=== PATIENT | female | born 1960 | race Two or more races ===

== ENCOUNTER 2019-11-12 19:48 | Emergency (ER) | payer MEDICAID ==
--- NOTE | 2019-11-12 20:16 | ER Document Report ---
ED Medical Screen (RME) - General Chief Complaint: Knee Pain Stated Complaint: KNEE PAIN Time Seen by Provider: 11/12/19 20:14 Mode of Arrival: Ambulatory Information source: Patient Notes: 59-year-old female presented to ED for complaint in both hips and her right shoulder. She states she moved from [place] 2 weeks ago and last saw her doctor more than a month ago. She states her doctor in [place] had her on Ultram and she has run out of Ultram now about a week ago. She called her doctor in [place] and she said she would need to get the medicines here now. She states she went to an urgent care and they told her that they could not see her because of her insurance. She is alert oriented respirations regular nonlabored speaking in full sentences. She states she has had 2 surgeries on her left knee 2 surgeries on her right knee to include a knee replacement in March she is also had 3 shoulder surgeries on her right shoulder both rotator cuff repair bicep tear repair and another surgery. She is alert oriented respirations regular nonlabored speaking in full sentences. She is here to get refill on her Ultram. I have greeted and performed a rapid initial assessment of this patient. A comprehensive ED assessment and evaluation of the patient, analysis of test results and completion of medical decision making process will be conducted by an additional ED providers. - Related Data Allergies/Adverse Reactions: NSAIDS (Non-Steroidal Anti-Inflamma Adverse Reaction (Verified 11/12/19 20:11) Home Medications: amitripyline Past Medical History - Social History Frequency of alcohol use: None Drug Abuse: None Physical Exam - Vital signs Vitals: Temp Pulse Resp BP Pulse Ox 98.2 F 96 16 121/77 96 11/12/19 19:53 11/12/19 19:53 11/12/19 19:53 11/12/19 19:53 11/12/19 19:53 Course - Vital Signs Vital signs: Temp Pulse Resp BP Pulse Ox 98.2 F 96 16 121/77 96 11/12/19 19:53 11/12/19 19:53 11/12/19 19:53 11/12/19 19:53 11/12/19 19:53
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
[2019-11-12] MEDS ORDERED: TRAMADOL HCL 50 MG TABLET PO ONE (21:53)
[2019-11-12 22:36] VITALS: BP 113/74
== END 2019-11-12 22:37 | disposition home or self-care (01) ==
LOC: ER 19:48
DX: M17.11 Unilateral primary osteoarthritis, right knee (principal); M25.562 Pain in left knee; M25.561 Pain in right knee; G89.29 Other chronic pain; H92.09 Otalgia, unspecified ear; E11.9 Type 2 diabetes mellitus without complications; M54.2 Cervicalgia; R68.84 Jaw pain; V49.9XXA Car occupant (driver) (passenger) injured in unspecified traffic accident, initial encounter; Z79.899 Other long term (current) drug therapy; Z98.84 Bariatric surgery status; Z88.8 Allergy status to other drugs, medicaments and biological substances; Z96.652 Presence of left artificial knee joint
CPT/HCPCS: 99283

== ENCOUNTER 2019-11-20 11:28 | Emergency (ER) | payer OTHER, MEDICAID ==
[2019-11-20] MEDS ORDERED: OXYCODONE-ACETAMINOPHEN 5-325 MG TABLET PO ONE (12:30)
--- NOTE | 2019-11-20 12:36 | ER Document Report ---
ED General - General Chief Complaint: Back Injury Stated Complaint: LEFT FLANK PAIN Time Seen by Provider: 11/20/19 11:52 - HPI Notes: CC: Fall with pain rib cage and lower back 59-year-old female recently seen in ED for complaint in both hips and her right shoulder. She obtained Rx for Ultram and was referred to PMD and pain managment. Back today reporting she stumbled over her pet dog and fell to floor this AM. Now with pain lower rib cage bilaterally and low back area. Aggrevated by movement, deep breath, standing. Reports 2 surgeries on her left knee 2 surgeries on her right knee to include a knee replacement in March she is also had 3 shoulder surgeries on her right shoulder both rotator cuff repair bicep tear repair and another surgery. - Related Data Allergies/Adverse Reactions: NSAIDS (Non-Steroidal Anti-Inflamma Adverse Reaction (Verified 11/12/19 20:11) Home Medications: Lexapro, Tramadol Past Medical History - General Information source: Patient - Social History Smoking Status: Unknown if Ever Smoked Family History: Reviewed & Not Pertinent Patient has suicidal ideation: No Patient has homicidal ideation: No Endocrine Medical History: Reports: Hx Diabetes Mellitus Type 2 Past Surgical History: Reports: Hx Abdominal Surgery, Hx Gastric Bypass Surgery, Hx Orthopedic Surgery Review of Systems - Review of Systems Notes: Constitutional: Negative for fever. HENT: Negative for sore throat. Eyes: Negative for visual changes. Cardiovascular: Negative for chest pain. Respiratory: Negative for shortness of breath. Gastrointestinal: Negative for abdominal pain, vomiting or diarrhea. Genitourinary: Negative for dysuria. Musculoskeletal: As per HPI. Skin: Negative for rash. Neurological: Negative for headaches, weakness or numbness. 10 point ROS negative except as marked above and in HPI. Physical Exam - Vital signs Vitals: Temp Pulse Resp BP Pulse Ox 97.6 F 75 24 H 117/93 H 97 11/20/19 11:33 11/20/19 11:33 11/20/19 11:33 11/20/19 11:33 11/20/19 11:33 - Notes Notes: GENERAL: Mildly obese female who appears moderately uncomfortable. SKIN: Good turgor no rashes. HEAD: Normocephalic atraumatic. EYES: PERRLA. EOMI. Conjunctivae and sclerae clear. EARS: CANALS AND TMS CLEAR. NOSE: CLEAR. MOUTH: Moist mucosa. Good dentition. No stridor or edema. No drooling. NECK: Supple. No masses or thyromegaly. No adenopathy. Carotids 2+ without bruits. No JVD. BACK: Symmetrical without visible ecchymoses. There is some diffuse tenderness with no step-off or crepitus appreciated.. CHEST: Tenderness over posterior lateral inferior rib cage area bilaterally without crepitus. Respirations unlabored. Breath sounds clear and symmetrical. HEART: Regular rhythm. No murmur gallop or rub. ABDOMEN: Soft nontender without masses, organomegaly or rebound. Bowel sounds normally active. No bruits. GENITALIA: Deferred. EXTREMITIES: No edema. No calf tenderness. Cap refill less than 1.5 seconds. Dorsalis pedis and posterior tibial pulses 3+ and symmetrical. NEUROLOGICAL: GCS 15. Alert and oriented x3. Normal gait. Fluent speech. Cranial nerves II through XII intact. Sensorimotor and cerebellar normal. Normal tone. PSYCHIATRIC: Appropriate affect. Course - Vital Signs Vital signs: Temp Pulse Resp BP Pulse Ox 97.6 F 75 24 H 117/93 H 97 11/20/19 11:33 11/20/19 11:33 11/20/19 11:33 11/20/19 11:33 11/20/19 11:33 - Diagnostic Test Radiology reviewed: Reports reviewed - Per radiologist plain films of chest PA and lateral and lumbar spine negative for fractures or other significant abnormalities. Discharge - Discharge Clinical Impression: Rib injury Fall Qualifiers: Encounter type: initial encounter Qualified Code(s): W19.XXXA - Unspecified fall, initial encounter Condition: Stable Disposition: HOME, SELF-CARE Instructions: Ice Packs ([facility]), Oral Narcotic Medication ([facility]) Prescriptions: Oxycodone HCl/Acetaminophen [Percocet 5-325 mg Tablet] 1 - 2 tab PO Q4H PRN #15 tablet PRN Reason: Referrals: [facility] [Provider Group] - Follow up as needed
--- NOTE | 2019-11-20 13:33 | RADIOLOGY REPORT (SQ) ---
EXAM DESCRIPTION: L SPINE WHOLE IMAGES COMPLETED DATE/TIME: 11/20/2019 1:24 pm REASON FOR STUDY: fall, rib injury COMPARISON: None. NUMBER OF VIEWS: Five views including obliques. TECHNIQUE: AP, lateral, oblique, and sacral radiographic images acquired of the lumbar spine. LIMITATIONS: None. FINDINGS: MINERALIZATION: Normal. SEGMENTATION: Normal. No transitional anatomy. ALIGNMENT: Normal. VERTEBRAE: Maintained height. No fracture or worrisome bone lesion. DISCS: Multilevel disc space narrowing with osteophytes. POSTERIOR ELEMENTS: Pedicles and facets are intact. No pars defect or posterior arch defects. Facet arthropathy is present. HARDWARE: None in the spine. PARASPINAL SOFT TISSUES: Normal. PELVIS: Intact as visualized. No fractures or worrisome bone lesions. SI joints intact. OTHER: No other significant finding. IMPRESSION: SPONDYLOSIS WITHOUT BONE LESION OR FRACTURE. TECHNICAL DOCUMENTATION: JOB ID: [id number] 2010 [employer]- All Rights Reserved Reading location - IP/workstation name: [email or web address]
--- NOTE | 2019-11-20 13:34 | RADIOLOGY REPORT (SQ) ---
EXAM DESCRIPTION: CHEST 2 VIEWS IMAGES COMPLETED DATE/TIME: 11/20/2019 1:24 pm REASON FOR STUDY: fall, rib injury COMPARISON: None. EXAM PARAMETERS: NUMBER OF VIEWS: two views TECHNIQUE: Digital Frontal and Lateral radiographic views of the chest acquired. RADIATION DOSE: NA LIMITATIONS: none FINDINGS: LUNGS AND PLEURA: No opacities, masses or pneumothorax. No pleural effusion. MEDIASTINUM AND HILAR STRUCTURES: No masses or contour abnormalities. HEART AND VASCULAR STRUCTURES: Heart normal size. No evidence for failure. BONES: No acute findings. HARDWARE: None in the chest. OTHER: No other significant finding. IMPRESSION: NO ACUTE RADIOGRAPHIC FINDING IN THE CHEST. TECHNICAL DOCUMENTATION: JOB ID: [id number] 2010 [employer]- All Rights Reserved Reading location - IP/workstation name: [email or web address]
[2019-11-20 14:30] VITALS: BP 110/61
== END 2019-11-20 14:42 | disposition home or self-care (01) ==
LOC: ER 11:28
DX: S29.9XXA Unspecified injury of thorax, initial encounter (principal); M25.552 Pain in left hip; M25.551 Pain in right hip; M25.511 Pain in right shoulder; W01.0XXA Fall on same level from slipping, tripping and stumbling without subsequent striking against object, initial encounter; E11.9 Type 2 diabetes mellitus without complications; Z98.84 Bariatric surgery status
CPT/HCPCS: 71046; 72110; 99283

== ENCOUNTER 2019-11-27 18:04 | Emergency (ER) | payer OTHER, MEDICAID ==
--- NOTE | 2019-11-27 18:43 | ER Document Report ---
ED Medical Screen (RME) - General Chief Complaint: Hip Pain Stated Complaint: FALL/BACK PAIN Notes: Patient is a 59-year-old white female with no significant past medical history who was seen here last Yash for injuries after a fall, had a chest x-ray L- spine series that she reports were equivocal. States that she still having pain with some reported difficulty breathing. Sure she fell from a standing position when her dog pushed her legs out from under her. States at the time she thought the wind was knocked out of her but the pain persists primarily in the left ribs and left hip/groin area. Denies any numbness tingling or weakness. Denies any head injury or neck pain. I have treated and performed a rapid initial assessment of this patient. A comprehensive ED assessment and evaluation of the patient, analysis of test results and completion of medical decision making process will be conducted by additional ED providers. PHYSICAL EXAMINATION: GENERAL: Well-appearing, well-nourished and in no acute distress. A&Ox4. Answers questions appropriately. - Related Data Allergies/Adverse Reactions: NSAIDS (Non-Steroidal Anti-Inflamma Adverse Reaction (Verified 11/12/19 20:11) Past Medical History Endocrine Medical History: Reports: Hx Diabetes Mellitus Type 2 Past Surgical History: Reports: Hx Abdominal Surgery, Hx Gastric Bypass Surgery, Hx Orthopedic Surgery Physical Exam - Vital signs Vitals: Temp Pulse Resp BP Pulse Ox 98.7 F 59 L 16 120/87 H 100 11/27/19 18:08 11/27/19 18:08 11/27/19 18:08 11/27/19 18:08 11/27/19 18:08 Course - Vital Signs Vital signs: Temp Pulse Resp BP Pulse Ox 98.7 F 59 L 16 120/87 H 100 11/27/19 18:08 11/27/19 18:08 11/27/19 18:08 11/27/19 18:08 11/27/19 18:08
--- NOTE | 2019-11-27 19:22 | RADIOLOGY REPORT (SQ) ---
EXAM DESCRIPTION: HIP LEFT AP/LATERAL IMAGES COMPLETED DATE/TIME: 11/27/2019 5:50 pm REASON FOR STUDY: fall, pain COMPARISON: None. NUMBER OF VIEWS: Two views. TECHNIQUE: AP pelvis and additional frog-leg view of the left hip. LIMITATIONS: None. FINDINGS: MINERALIZATION: Normal. LEFT HIP: No fracture or dislocation. No worrisome bone lesions. RIGHT HIP: No fracture or dislocation. No worrisome bone lesions. PUBIS AND ISCHIUM: No fracture. PELVIS: No fracture. SACRUM: No fracture or dislocation. No worrisome bone lesions. LOWER LUMBAR SPINE: No fracture or dislocation. No worrisome bone lesions. No significant disc disea se. SOFT TISSUES: No findings. OTHER: No other significant finding. IMPRESSION: NEGATIVE STUDY OF THE LEFT HIP AND PELVIS. NO RADIOGRAPHIC EVIDENCE OF ACUTE INJURY. TECHNICAL DOCUMENTATION: JOB ID: [id number] 2010 [employer]- All Rights Reserved Reading location - IP/workstation name: [email or web address]
--- NOTE | 2019-11-27 19:23 | RADIOLOGY REPORT (SQ) ---
EXAM DESCRIPTION: RIBS LEFT W/PA CHEST IMAGES COMPLETED DATE/TIME: 11/27/2019 5:50 pm REASON FOR STUDY: fall, pain COMPARISON: None. TECHNIQUE: Frontal view of the chest and additional views of the left ribs acquired. NUMBER OF VIEWS: Three views LIMITATIONS: None. FINDINGS: FRONTAL CXR: No pneumothorax. No pleural effusion. No atelectasis or infiltrates. RIBS: No displaced rib fractures. No lytic or blastic bony lesions. OTHER: No other significant finding. IMPRESSION: NO PNEUMOTHORAX. NO DISPLACED RIB FRACTURES. COMMENT: SITE OF TRAUMA/COMPLAINT MARKED/STAMP COMPLETED: NA TECHNICAL DOCUMENTATION: JOB ID: [id number] 2010 [employer]- All Rights Reserved Reading location - IP/workstation name: [email or web address]
[2019-11-27 20:06] VITALS: BP 105/74
--- NOTE | 2019-11-27 20:11 | ER Document Report ---
ED General - General Chief Complaint: Hip Pain Stated Complaint: FALL/BACK PAIN Time Seen by Provider: 11/27/19 20:05 Mode of Arrival: Ambulatory Information source: Patient Notes: gino note Patient is a 59-year-old white female with no significant past medical history who was seen here last Saturday for injuries after a fall, had a chest x-ray L- spine series that she reports were equivocal. States that she still having pain with some reported difficulty breathing. Sure she fell from a standing position when her dog pushed her legs out from under her. States at the time she thought the wind was knocked out of her but the pain persists primarily in the left ribs and left hip/groin area. Denies any numbness tingling or weakness. Denies any head injury or neck pain. My note 59-year-old descent female who speaks excellent Bulgarian with some accent with chief complaint of diffuse low back but especially left SI left hip pelvic pain after 1 week ago she fell backwards onto her back on a slanted grassy hill. She was unbalanced by her 55 pound dog who jumped up on her chest knocking her down. Her x-rays 1 week ago and x-rays today were negative for fractures. Attempts at having a bowel movement and sitting on the toilet worsens left SI pain and left hip pain TRAVEL OUTSIDE OF THE [place] IN LAST 30 DAYS: No - HPI Onset: Last week Onset/Duration: Constant, Persistent Quality of pain: Achy Severity: Moderate Pain Level: 2 Associated symptoms: None Exacerbated by: Movement, Other - Attempts at having a bowel movement and sitting on the toilet worsens left SI pain and left hip pain - Related Data Allergies/Adverse Reactions: NSAIDS (Non-Steroidal Anti-Inflamma Adverse Reaction (Verified 11/12/19 20:11) Past Medical History - General Information source: Patient - Social History Smoking Status: Unknown if Ever Smoked Cigarette use (# per day): No Chew tobacco use (# tins/day): No Smoking Education Provided: No Frequency of alcohol use: None Drug Abuse: None Lives with: Family Family History: Reviewed & Not Pertinent Patient has suicidal ideation: No Patient has homicidal ideation: No Endocrine Medical History: Reports: Hx Diabetes Mellitus Type 2 Past Surgical History: Reports: Hx Abdominal Surgery, Hx Gastric Bypass Surgery, Hx Orthopedic Surgery Review of Systems - Review of Systems Constitutional: No symptoms reported EENT: No symptoms reported Cardiovascular: No symptoms reported Respiratory: No symptoms reported Gastrointestinal: No symptoms reported Genitourinary: No symptoms reported Female Genitourinary: No symptoms reported Musculoskeletal: See HPI, Back pain, Joint pain - left hip /proximal femur and low back lower ribs Skin: No symptoms reported Hematologic/Lymphatic: No symptoms reported Neurological/Psychological: No symptoms reported Physical Exam - Vital signs Vitals: Temp Pulse Resp BP Pulse Ox 98.7 F 59 L 16 120/87 H 100 11/27/19 18:08 11/27/19 18:08 11/27/19 18:08 11/27/19 18:08 11/27/19 18:08 Interpretation: Normal - General General appearance: Alert - HEENT Head: Normocephalic Eyes: Normal Pupils: PERRL Sinus: Normal Mouth/Lips: Normal Pharynx: Normal Neck: Normal - Respiratory Respiratory status: No respiratory distress Chest status: Nontender Breath sounds: Normal Chest palpation: Normal - Cardiovascular Rhythm: Regular Heart sounds: Normal auscultation Murmur: No - Abdominal Inspection: Normal Distension: No distension Bowel sounds: Normal Tenderness: Nontender Organomegaly: No organomegaly - Genitourinary External exam: Other - deferred - Back Back: Normal - Extremities General upper extremity: Normal inspection General lower extremity: Tender - left hip / Left SI on p/p ROM Course - Vital Signs Vital signs: Temp Pulse Resp BP Pulse Ox 98.7 F 69 18 105/74 98 11/27/19 20:03 11/27/19 20:03 11/27/19 20:03 11/27/19 20:03 11/27/19 20:03 - Diagnostic Test Radiology reviewed: Reports reviewed Critical Care Note - Critical Care Note Total time excluding time spent on procedures (mins): 90 Comments: I advised patient of x-ray and CT findings which are essentially negative per radiology Discharge - Discharge Clinical Impression: Low back pain at multiple sites, Disorder of left sacroiliac joint Fall Qualifiers: Encounter type: subsequent encounter Qualified Code(s): W19.XXXD - Unspecified fall, subsequent encounter Contusion of ribs Qualifiers: Encounter type: subsequent encounter Laterality: left Qualified Code(s): S20.212D - Contusion of left front wall of thorax, subsequent encounter Condition: Good Disposition: HOME, SELF-CARE Additional Instructions: Follow-up with orthopedics Dr. Cespedes if symptoms persist and follow-up with your personal doctor if symptoms persist and take medicines as directed Prescriptions: Diclofenac Sodium 100 gm TP BID PRN #100 gel..gram. PRN Reason: Chlorzoxazone [Parafon Forte Dsc 500 Mg Tablet] 500 mg PO BID PRN 10 Days #20 tablet PRN Reason: Forms: Return to Work
[2019-11-27] MEDS ORDERED: KETOROLAC TROMETHAMINE INJ/PF 30 MG/1 ML SDV IM ONE (20:27)
[2019-11-27] MEDS ORDERED: OXYCODONE-ACETAMINOPHEN 5-325 MG TABLET PO ONE (20:29)
--- NOTE | 2019-11-27 21:20 | RADIOLOGY REPORT (SQ) ---
EXAM DESCRIPTION: CT ABDOMEN PELVIS WITHOUT IV CONTRAST COMPLETED DATE/TME: 11/27/2019 8:35 PM CLINICAL HISTORY: fall COMPARISON: None Available TECHNIQUE: Contiguous axial images of the abdomen and pelvis were obtained followed by reconstruction images. This exam was performed according to our departmental dose-optimization program, which includes automated exposure control, adjustment of the mA and/or kV according to patient size and/or use of iterative reconstruction technique. FINDINGS: Patient is status post gastric bypass surgery. Calcifications within the pelvis compatible with phleboliths. The liver, spleen, pancreas and kidneys are within normal limits. There is no hydronephrosis or renal stones. The gallbladder is unremarkable by CT criteria. Adrenal glands are within normal limits. Aorta is of normal caliber and tapering. There is no free fluid in the abdomen or pelvis. There is no bowel obstruction. There is no stranding of the mesenteric fat to suggest an inflammatory response. The appendix is within normal limits. There is no pericecal inflammation. IMPRESSION: No acute intra-abdominal abnormality.
[2019-11-27] MEDS ORDERED: HYDROCODONE/ACETAMINOPHEN 5-325 MG (6 TAB/ER DISP) PO PRN (21:58)
== END 2019-11-27 22:42 | disposition home or self-care (01) ==
LOC: ER 18:04
DX: S20.212D Contusion of left front wall of thorax, subsequent encounter (principal); M53.3 Sacrococcygeal disorders, not elsewhere classified; M54.5 Low back pain; R07.81 Pleurodynia; M25.552 Pain in left hip; R10.30 Lower abdominal pain, unspecified; R10.2 Pelvic and perineal pain; W19.XXXD Unspecified fall, subsequent encounter; Z88.8 Allergy status to other drugs, medicaments and biological substances; E11.9 Type 2 diabetes mellitus without complications
CPT/HCPCS: 99285; 96372; 73502; 71101; 74176; J1885

== ENCOUNTER 2019-12-22 15:43 | Emergency (ER) | payer MEDICAID, OTHER ==
--- NOTE | 2019-12-22 16:05 | ER Document Report ---
ED Medical Screen (RME) - General Chief Complaint: Rib Pain Stated Complaint: FALL/RIB PAIN Time Seen by Provider: 12/22/19 15:58 Mode of Arrival: Ambulatory Information source: Patient Notes: Patient presents stating that she has had epigastric pain that radiates to her back for the past month. Patient states that the pain increases with breathing. Patient denies any nausea vomiting or urinary symptoms. Patient also complains of right shoulder pain. I have greeted and performed a rapid initial assessment of this patient. A comprehensive ED assessment and evaluation of the patient, analysis of test results and completion of the medical decision making process will be conducted by additional ED providers. TRAVEL OUTSIDE OF THE [place] IN LAST 30 DAYS: No - Related Data Allergies/Adverse Reactions: NSAIDS (Non-Steroidal Anti-Inflamma Adverse Reaction (Verified 12/22/19 15:58) Past Medical History Endocrine Medical History: Reports: Hx Diabetes Mellitus Type 2 Past Surgical History: Reports: Hx Abdominal Surgery, Hx Gastric Bypass Surgery, Hx Orthopedic Surgery Physical Exam - Vital signs Vitals: Temp Pulse Resp BP Pulse Ox 97.9 F 73 18 122/71 99 12/22/19 15:49 12/22/19 15:49 12/22/19 15:49 12/22/19 15:49 12/22/19 15:49 - Abdominal Inspection: Morbidly Obese Tenderness: Tender - Epigastric Course - Vital Signs Vital signs: Temp Pulse Resp BP Pulse Ox 97.9 F 73 18 122/71 99 12/22/19 15:49 12/22/19 15:49 12/22/19 15:49 12/22/19 15:49 12/22/19 15:49
[2019-12-22 16:44] LABS: ABSOLUTE BASOPHILS # (AUTO) 0.1 10^3/uL (0.0-0.2); ABSOLUTE EOSINOPHILS # (AUTO) 0.1 10^3/uL (0.0-0.6); ABSOLUTE LYMPHOCYTES (AUTO) 1.7 10^3/uL (0.5-4.7); ABSOLUTE MONOCYTES (AUTO) 0.7 10^3/uL (0.1-1.4); ABSOLUTE NEUT (AUTO) 8.4 10^3/uL (1.7-8.2); BASOPHILS % (AUTO) 0.8 % (0-2); EOSINOPHILS % (AUTO) 0.7 % (0-6); HEMATOCRIT 35.2 % (36.0-47.0); HEMOGLOBIN 11.8 g/dL (12.0-15.5); LYMPHOCYTES % (AUTO) 15.5 % (13-45); MEAN CORPUSCULAR HEMOGLOBIN 26.3 pg (27.0-33.4); MEAN CORPUSCULAR HGB CONC 33.6 g/dL (32.0-36.0); MEAN CORPUSCULAR VOLUME 78 fl (80-97); MONOCYTES % (AUTO) 6.2 % (3-13); PLATELET COUNT 339 10^3/uL (150-450); RED CELL DISTRIBUTION WIDTH 16.4 % (11.5-14.0); SEGMENTED NEUTROPHILS % (AUTO) 76.8 % (42-78); TOTAL CELLS COUNTED % (AUTO) 100 %; WHITE BLOOD COUNT 10.9 10^3/uL (4.0-10.5)
--- NOTE | 2019-12-22 16:45 | RADIOLOGY REPORT (SQ) ---
EXAM DESCRIPTION: CHEST 2 VIEWS IMAGES COMPLETED DATE/TIME: 12/22/2019 4:32 pm REASON FOR STUDY: epig/upper back pain COMPARISON: 11/27/2019 EXAM PARAMETERS: NUMBER OF VIEWS: two views TECHNIQUE: Digital Frontal and Lateral radiographic views of the chest acquired. RADIATION DOSE: NA LIMITATIONS: none FINDINGS: LUNGS AND PLEURA: No opacities, masses or pneumothorax. No pleural effusion. MEDIASTINUM AND HILAR STRUCTURES: No masses or contour abnormalities. HEART AND VASCULAR STRUCTURES: Heart normal size. No evidence for failure. BONES: No acute findings. HARDWARE: None in the chest. OTHER: No other significant finding. IMPRESSION: NO ACUTE RADIOGRAPHIC FINDING IN THE CHEST. TECHNICAL DOCUMENTATION: JOB ID: [id number] 2010 [employer]- All Rights Reserved Reading location - IP/workstation name: [email or web address]
--- NOTE | 2019-12-22 16:46 | RADIOLOGY REPORT (SQ) ---
EXAM DESCRIPTION: SHOULDER RIGHT 2 OR MORE VIEWS IMAGES COMPLETED DATE/TIME: 12/22/2019 4:32 pm REASON FOR STUDY: r shoulder pain COMPARISON: Chest x-ray dated 11/20/2019 NUMBER OF VIEWS: Three views. TECHNIQUE: Internal rotation, external rotation, and Y view images acquired of the right shoulder. LIMITATIONS: None. FINDINGS: MINERALIZATION: Normal. BONES: No acute fracture. No worrisome bone lesions. JOINTS: Widening of the AC joint which appears stable in most likely chronic. VISUALIZED LUNGS AND RIBS: No pneumothorax. No rib fracture. SOFT TISSUES: No radiopaque foreign body. OTHER: No other significant finding. IMPRESSION: Degenerative changes. No acute findings. TECHNICAL DOCUMENTATION: JOB ID: [id number] 2010 [employer]- All Rights Reserved Reading location - IP/workstation name: [email or web address]
[2019-12-22 17:00] LABS: ALBUMIN 3.9 g/dL (3.5-5.0); ALKALINE PHOSPHATASE 164 U/L (38-126); ANION GAP 6 (5-19); ASPARTATE AMINO TRANSFERASE 20 U/L (14-36); BILIRUBIN,TOTAL 0.3 mg/dL (0.2-1.3); BLOOD UREA NITROGEN 19 mg/dL (7-20); CALCIUM 9.2 mg/dL (8.4-10.2); CARBON DIOXIDE 26 mmol/L (22-30); CHLORIDE 106 mmol/L (98-107); POTASSIUM 4.1 mmol/L (3.6-5.0); TOTAL PROTEIN 7.2 g/dL (6.3-8.2)
[2019-12-22 17:09] LABS: GLUCOSE 61 mg/dL (75-110)
[2019-12-22 17:31] LABS: ADD MANUAL MICROSCOPIC YES; APPEARANCE,URINE SLIGHTLY-CLOUDY; BILIRUBIN,URINE NEGATIVE (NEGATIVE); COLOR,URINE STRAW; GLUCOSE, URINE NEGATIVE (NEGATIVE); KETONES,URINE NEGATIVE (NEGATIVE); LEUKOCYTE ESTERASE,URINE NEGATIVE (NEGATIVE); NITRITE,URINE NEGATIVE (NEGATIVE); PROTEIN,URINE NEGATIVE (NEGATIVE); URINE SPECIFIC GRAVITY 1.024; UROBILINOGEN,URINE NEGATIVE mg/dL (<2.0)
[2019-12-22 17:32] LABS: AMORPHOUS SEDIMENT,UR TRACE
[2019-12-22 17:43] VITALS: BP 101/66
--- NOTE | 2019-12-22 17:48 | ER Document Report ---
ED General - General Chief Complaint: Rib Pain Stated Complaint: FALL/RIB PAIN Time Seen by Provider: 12/22/19 15:58 Mode of Arrival: Ambulatory TRAVEL OUTSIDE OF THE [place] IN LAST 30 DAYS: No - HPI Notes: Patient presents with several complaints. She states she has had some epig astric pain that goes to her back for about 1 month. She also states that she has got chronic pain in her right shoulder that is gotten so bad she has to have her family help her get dressed. She also had a fall approximately 5 to 6 weeks ago and has persistent back and left lateral side pain from this. She states she was taking tramadol which helped but she is now out of this. She states she would like more pain medicine and referral to orthopedics. She denies any cough cold or congestion. No nausea vomiting diarrhea. No shortness of breath. No recent fevers. Her symptoms of pain are constant but they do wax and wane in severity. They are worse with movement and better with rest. They do radiate to different joints. They are an aching sensation with some burning in the epigastric area. This is a [id number] - Related Data Allergies/Adverse Reactions: NSAIDS (Non-Steroidal Anti-Inflamma Adverse Reaction (Verified 12/22/19 15:58) Home Medications: lexapro, amitriptyline, diclofenac, ibuprofen, tylenol Past Medical History - General Information source: Patient - Social History Smoking Status: Never Smoker Chew tobacco use (# tins/day): No Frequency of alcohol use: None Drug Abuse: None Family History: Reviewed & Not Pertinent Patient has homicidal ideation: No - Past Medical History Cardiac Medical History: Reports: Hx Hypertension Endocrine Medical History: Reports: Hx Diabetes Mellitus Type 2 Past Surgical History: Reports: Hx Abdominal Surgery, Hx Gastric Bypass Surgery, Hx Orthopedic Surgery Review of Systems - Review of Systems Constitutional: denies: Chills, Fever Cardiovascular: denies: Chest pain, Palpitations Respiratory: denies: Cough, Short of breath -: Yes All other systems reviewed and negative Physical Exam - Vital signs Vitals: Temp Pulse Resp BP Pulse Ox 97.9 F 73 18 122/71 99 12/22/19 15:49 12/22/19 15:49 12/22/19 15:49 12/22/19 15:49 12/22/19 15:49 Interpretation: Normal - General General appearance: Appears well, Alert - HEENT Head: Normocephalic, Atraumatic Eyes: Normal Pupils: PERRL - Respiratory Respiratory status: No respiratory distress Chest status: Nontender Breath sounds: Normal Chest palpation: Normal - Cardiovascular Rhythm: Regular Heart sounds: Normal auscultation Murmur: No - Abdominal Inspection: Normal Distension: No distension Bowel sounds: Normal Tenderness: Nontender Organomegaly: No organomegaly - Back Back: Normal, Tender - Some mild tenderness to the mid lumbar spine but without step-off or deformity - Extremities General upper extremity: Normal inspection, Normal color, Normal temperature, Other - Right shoulder is tender to palpation diffusely and does have a painful range of motion. There is no significant effusion of the right shoulder joint. No discoloration or induration of the right shoulder area. General lower extremity: Normal inspection, Normal color, Normal temperature, Normal weight bearing. No: Chuck's sign - Neurological Neuro grossly intact: Yes Cognition: Normal Orientation: AAOx4 [place] Coma Scale Eye Opening: Spontaneous [place] Coma Scale Verbal: Oriented [place] Coma Scale Motor: Obeys Commands [place] Coma Scale Total: 15 Speech: Normal Motor strength normal: LUE, RUE, LLE, RLE Sensory: Normal - Psychological Associated symptoms: Normal affect, Normal mood - Skin Skin Temperature: Warm Skin Moisture: Dry Skin Color: Normal Course - Re-evaluation Re-evalutation: 12/22/19 18:21 Patient presents with chronic pain that she has had over a month. She does have some epigastric pain that goes to her back as well as some right shoulder pain however she has no EKG changes that would suggest ischemia. She is pleasant and in no distress and walking about the emergency department under her own power without problem. - Vital Signs Vital signs: Temp Pulse Resp BP Pulse Ox 98.7 F 72 17 101/66 100 12/22/19 17:42 12/22/19 17:42 12/22/19 17:42 12/22/19 17:42 12/22/19 17:42 - Laboratory Result Diagrams: 12/22/19 16:19 12/22/19 16:19 Laboratory results interpreted by me: 12/22/19 12/22/19 12/22/19 16:19 16:19 16:57 WBC 10.9 H Hgb 11.8 L Hct 35.2 L MCV 78 L MCH 26.3 L RDW 16.4 H Absolute Neuts (auto) 8.4 H Glucose 61 L Alkaline Phosphatase 164 H Urine Ascorbic Acid 40 H - EKG Interpretation by Ut EKG shows normal: Sinus rhythm Rate: Normal - 74 Rhythm: NSR [place]/QRS: Left axis deviation. No: Right axis deviation Discharge - Discharge Clinical Impression: Right shoulder pain Qualifiers: Chronicity: acute Qualified Code(s): M25.511 - Pain in right shoulder Condition: Stable Disposition: HOME, SELF-CARE Instructions: Shoulder Injury ([facility]) Additional Instructions: Please follow-up with orthopedics as soon as possible Prescriptions: Tramadol HCl [Ultram] 50 mg PO Q6 PRN 3 Days #12 tablet PRN Reason: Forms: Return to Work Referrals: ELEONORA MACEDO MD [ACTIVE STAFF] - Follow up in 3-5 days
[2019-12-22] MEDS ORDERED: TRAMADOL HCL 50 MG TABLET PO ONE (18:26)
--- NOTE | 2019-12-23 08:36 | EKG REPORT ---
SEVERITY:- BORDERLINE ECG - SINUS RHYTHM BORDERLINE LEFT AXIS DEVIATION BORDERLINE R WAVE PROGRESSION, ANTERIOR LEADS : Confirmed by: Sahra Carrizales 23-Dec-2019 08:36:22
== END 2019-12-22 18:33 | disposition home or self-care (01) ==
LOC: ER 15:43
DX: M25.511 Pain in right shoulder (principal); R07.81 Pleurodynia; R10.13 Epigastric pain; G89.29 Other chronic pain; Z88.8 Allergy status to other drugs, medicaments and biological substances; Z79.899 Other long term (current) drug therapy; I10 Essential (primary) hypertension; E11.9 Type 2 diabetes mellitus without complications
CPT/HCPCS: 36415; 71046; 80053; 81001; 83690; 85025; 93005; 93010; 99284

== ENCOUNTER → 2020-03-16 | Day surgery (SDC) | payer MEDICAID ==
--- NOTE | 2020-03-16 13:50 | RADIOLOGY REPORT (SQ) ---
EXAM DESCRIPTION: FLUORO/NEEDLE PLACEMENT; ARTHRO SHOULDER INJECTION IMAGES COMPLETED DATE/TIME: 03/16/2020 1:34 pm REASON FOR STUDY: COMPLETE ROTATOR CUFF TEAR OR RUPTURE OF RIGHT SHOULDER (M75.121) M75.121 COMPLET E ROTATR-CUFF TEAR/RUPTR OF R SHOULDER, NOT T COMPARISON: None. FLUOROSCOPY TIME: 0.3 minutes of fluoroscopy was used. On images saved to PACS. LIMITATIONS: None. PROCEDURE: Procedure, risks, benefits and alternatives explained to patient who then gave written co nsent. The right shoulder was marked and a time out was called for correct procedure verification. P osterior entry site marked using fluoroscopic guidance. Shoulder prepped and draped using sterile te chnique. Local anesthesia achieved using 1% lidocaine injection. Hypodermic needle introduced into the joint space under direct fluoroscopic visualization. Non-ionic contrast instilled to confirm intr a-articular position. Dilute gadolinium solution then injected. Needle removed and entry site covere d with sterile bandage. No immediate complications noted. TECHNIQUE: Digital images acquired during fluoroscopy and stored on PACS. Patient immediately take n to the MR suite for additional imaging. INJECTION LOCATION: Posterior right shoulder. CONTRAST TYPE AND AMOUNT: 12 mL Prohance/Saline mixture. IMPRESSION: SUCCESSFUL NEEDLE PLACEMENT AND INJECTION FOR RIGHT SHOULDER MR ARTHROGRAM USING POSTERI OR APPROACH. COMMENT: Quality ID 145: Final reports for procedures using fluoroscopy that document radiation exp osure indices, or exposure time and number of fluorographic images (if radiation exposure indices are not available) TECHNICAL DOCUMENTATION: JOB ID: [id number] 2010 [facility]- All Rights Reserved Reading location - IP/workstation name: [email or web address]
--- NOTE | 2020-03-16 13:50 | RADIOLOGY REPORT (SQ) ---
EXAM DESCRIPTION: FLUORO/NEEDLE PLACEMENT; ARTHRO SHOULDER INJECTION IMAGES COMPLETED DATE/TIME: 03/16/2020 1:34 pm REASON FOR STUDY: COMPLETE ROTATOR CUFF TEAR OR RUPTURE OF RIGHT SHOULDER (M75.121) M75.121 COMPLET E ROTATR-CUFF TEAR/RUPTR OF R SHOULDER, NOT T COMPARISON: None. FLUOROSCOPY TIME: 0.3 minutes of fluoroscopy was used. On images saved to PACS. LIMITATIONS: None. PROCEDURE: Procedure, risks, benefits and alternatives explained to patient who then gave written co nsent. The right shoulder was marked and a time out was called for correct procedure verification. P osterior entry site marked using fluoroscopic guidance. Shoulder prepped and draped using sterile te chnique. Local anesthesia achieved using 1% lidocaine injection. Hypodermic needle introduced into the joint space under direct fluoroscopic visualization. Non-ionic contrast instilled to confirm intr a-articular position. Dilute gadolinium solution then injected. Needle removed and entry site covere d with sterile bandage. No immediate complications noted. TECHNIQUE: Digital images acquired during fluoroscopy and stored on PACS. Patient immediately take n to the MR suite for additional imaging. INJECTION LOCATION: Posterior right shoulder. CONTRAST TYPE AND AMOUNT: 12 mL Prohance/Saline mixture. IMPRESSION: SUCCESSFUL NEEDLE PLACEMENT AND INJECTION FOR RIGHT SHOULDER MR ARTHROGRAM USING POSTERI OR APPROACH. COMMENT: Quality ID 145: Final reports for procedures using fluoroscopy that document radiation exp osure indices, or exposure time and number of fluorographic images (if radiation exposure indices are not available) TECHNICAL DOCUMENTATION: JOB ID: [id number] 2010 [employer]- All Rights Reserved Reading location - IP/workstation name: [email or web address]
--- NOTE | 2020-03-16 17:04 | RADIOLOGY REPORT (SQ) ---
EXAM DESCRIPTION: MRI RT UPPER JOINT WITH IMAGES COMPLETED DATE/TIME: 03/16/2020 2:10 pm REASON FOR STUDY: COMPLETE ROTATOR CUFF TEAR OR RUPTURE OF RIGHT SHOULDER (M75.121) M75.121 COMPLET E ROTATR-CUFF TEAR/RUPTR OF R SHOULDER, NOT T COMPARISON: Right shoulder radiographs 12/22/2019 TECHNIQUE: Right shoulder images acquired and stored on PACS. Oblique coronal, oblique sagittal, and axial imaging to include fat sensitive sequences as T1, water sensitive sequences as FST2/STIR, and contrast sensitive sequences as FST1. LIMITATIONS: None. FINDINGS: JOINT DISTENTION: Adequate distention for interpretation. BONE MARROW AND CORTEX: No infiltrative process or acute osseous injury. Marginal osteophytes are se en of the humeral head. AC JOINT: Type II acromion. Mild acromioclavicular arthropathy. GLENOHUMERAL JOINT: The humeral head is superiorly subluxed relative to the glenoid. There is diffus e chondromalacia without subcortical cystic changes. ROTATOR CUFF: There is marked signal heterogeneity of the supraspinatus tendon with contrast signal s een extending into the subacromial/ subdeltoid bursa, suggesting a full-thickness tear. Multiple pun ctate foci of blooming artifact are seen both intraarticular and extra-articular ; these are nonspeci fic, may represent surgical residua, artifact, or other. There is diffuse rotator cuff muscle atroph y. LABRUM AND BICEPS LABRAL COMPLEX: No discretely intact superior labrum is visualized, noting a relati vely normal appearance of the inferior, posterior labrum. No paralabral cysts are demonstrated. No long head of biceps tendon is visualized; it remains unclear whether this a surgical change in this p atient with reported multiple previous surgeries. ADJACENT SOFT TISSUES: No masses or nodes. OTHER: No other significant finding. IMPRESSION: Patient reports multiple previous unspecified surgeries. Degenerative appearance of the glenohumeral joint with either diffusely degenerative or partially debrided labrum. Diffuse chondro malacia and marginal osteophyte formation. Markedly heterogeneous appearance of the supraspinatus wi th demonstrated intact fibers; the appearance of intraarticular contrast extending into the subacromi al/subdeltoid bursa suggests an occult full-thickness tear. Diffuse rotator cuff muscle atrophy. No nvisualization of the long head of the biceps tendon may be related to previous biceps tenodesis. Re latively mild acromioclavicular arthropathy. TECHNICAL DOCUMENTATION: JOB ID: [id number] 2010 [employer]- All Rights Reserved Reading location - IP/workstation name: [email or web address]
== END ==
LOC: RAD 12:32
PROVIDERS: ATTEND Orthopaedic Surgery
DX: M75.121 Complete rotator cuff tear or rupture of right shoulder, not specified as traumatic (principal)
CPT/HCPCS: 73222; 77002; 23350; A9576

== ENCOUNTER 2020-05-10 02:56 | Emergency (ER) | payer MEDICAID ==
--- NOTE | 2020-05-11 12:58 | EKG REPORT ---
SEVERITY:- ABNORMAL ECG - SINUS RHYTHM NONSPECIFIC INTRAVENTRICULAR CONDUCTION DELAY ABNRM R PROG, CONSIDER ASMI OR LEAD PLACEMENT : Confirmed by: Hawk Lujan MD 11-May-2020 12:58:14
== END 2020-05-10 03:50 | disposition left against medical advice (07) ==
LOC: ER 02:56
DX: Z53.21 Procedure and treatment not carried out due to patient leaving prior to being seen by health care provider (principal)

== ENCOUNTER 2020-05-15 22:38 | Emergency (ER) | payer MEDICAID ==
--- NOTE | 2020-05-15 23:29 | ER Document Report ---
ED Medical Screen (RME) - General Chief Complaint: Back Pain Stated Complaint: LOWER BACK PAIN Time Seen by Provider: 05/15/20 23:27 Primary Care Provider: BANDAR ROCHA MD [Primary Care Provider] - Follow up as needed Mode of Arrival: Ambulatory Information source: Patient Notes: HPI; 59-year-old female presents to the emergency room with multiple complaints. States she is had a persisting cough with ear pain and a sore throat ever since she had a thyroid biopsy 2 weeks ago and was diagnosed with thyroid cancer. She denies any fevers. States she is an appointment tomorrow with ENT. Is more severe. Also complains of upper back pain with hematuria. Taking Tylenol without relief. PE: Alert and oriented x3. Lungs: Clear to auscultation without rales, rhonchi, wheezes. Heart: Regular rate rhythm without murmurs, rubs, gallops. I have greeted and performed a rapid initial assessment of this patient. A comprehensive ED assessment and evaluation of the patient, analysis of test results and completion of the medical decision making process will be conducted by additional ED providers. I have specifically instructed the patient or family members with the patient to immediately return to any nursing staff should anything change in the patient's condition or with their chief complaint. TRAVEL OUTSIDE OF THE [place] IN LAST 30 DAYS: No - Related Data Allergies/Adverse Reactions: NSAIDS (Non-Steroidal Anti-Inflamma Adverse Reaction (Verified 12/22/19 15:58) Past Medical History - Past Medical History Cardiac Medical History: Reports: Hx Hypertension Endocrine Medical History: Reports: Hx Diabetes Mellitus Type 2 Past Surgical History: Reports: Hx Abdominal Surgery, Hx Gastric Bypass Surgery, Hx Orthopedic Surgery Physical Exam - Vital signs Vitals: Temp Pulse Resp BP Pulse Ox 98.5 F 74 17 143/74 H 98 05/15/20 23:19 05/15/20 23:19 05/15/20 23:19 05/15/20 23:19 05/15/20 23:19 Course - Vital Signs Vital signs: Temp Pulse Resp BP Pulse Ox 98.5 F 74 17 143/74 H 98 05/15/20 23:19 05/15/20 23:19 05/15/20 23:19 05/15/20 23:19 05/15/20 23:19 Doctor's Discharge - Discharge Referrals: BANDAR ROCHA MD [Primary Care Provider] - Follow up as needed
--- NOTE | 2020-05-16 00:21 | RADIOLOGY REPORT (SQ) ---
EXAM DESCRIPTION: X-ray, two views of the chest CLINICAL HISTORY: 59 years Female, cough COMPARISON: Single view of the chest November 27, 2019 FINDINGS: Lungs: Lungs are clear. No pneumonia or edema. No pneumothorax or pleural effusion. Mediastinum: Cardiac and mediastinal silhouette are normal. Bones: There is subtle loss of height of the lower thoracic vertebral body suggesting chronic compression. Mild kyphosis is present at this level. IMPRESSION: No acute process. No significant interval change.
[2020-05-16 01:58] LABS: ABSOLUTE BASOPHILS # (AUTO) 0.1 10^3/uL (0.0-0.2); ABSOLUTE EOSINOPHILS # (AUTO) 0.1 10^3/uL (0.0-0.6); ABSOLUTE LYMPHOCYTES (AUTO) 2.2 10^3/uL (0.5-4.7); ABSOLUTE MONOCYTES (AUTO) 0.7 10^3/uL (0.1-1.4); ABSOLUTE NEUT (AUTO) 9.1 10^3/uL (1.7-8.2); BASOPHILS % (AUTO) 1.2 % (0-2); EOSINOPHILS % (AUTO) 0.6 % (0-6); HEMATOCRIT 35.4 % (36.0-47.0); HEMOGLOBIN 11.6 g/dL (12.0-15.5); MEAN CORPUSCULAR HEMOGLOBIN 25.7 pg (27.0-33.4); MEAN CORPUSCULAR HGB CONC 32.7 g/dL (32.0-36.0); MEAN CORPUSCULAR VOLUME 79 fl (80-97); MONOCYTES % (AUTO) 5.7 % (3-13); PLATELET COUNT 314 10^3/uL (150-450); RED CELL DISTRIBUTION WIDTH 17.1 % (11.5-14.0); SEGMENTED NEUTROPHILS % (AUTO) 74.5 % (42-78); TOTAL CELLS COUNTED % (AUTO) 100 %; WHITE BLOOD COUNT 12.2 10^3/uL (4.0-10.5)
[2020-05-16 02:02] LABS: APPEARANCE,URINE SLIGHTLY-CLOUDY; BILIRUBIN,URINE NEGATIVE (NEGATIVE); COLOR,URINE YELLOW; GLUCOSE, URINE NEGATIVE (NEGATIVE); KETONES,URINE NEGATIVE (NEGATIVE); LEUKOCYTE ESTERASE,URINE NEGATIVE (NEGATIVE); NITRITE,URINE NEGATIVE (NEGATIVE); PROTEIN,URINE NEGATIVE (NEGATIVE); URINE SPECIFIC GRAVITY 1.028
[2020-05-16 02:20] LABS: ALBUMIN 4.3 g/dL (3.5-5.0); ALKALINE PHOSPHATASE 136 U/L (38-126); ANION GAP 11 (5-19); ASPARTATE AMINO TRANSFERASE 27 U/L (14-36); BILIRUBIN,DIRECT 0.3 mg/dL (0.0-0.4); BILIRUBIN,TOTAL 0.5 mg/dL (0.2-1.3); BLOOD UREA NITROGEN 20 mg/dL (7-20); CARBON DIOXIDE 26 mmol/L (22-30); CHLORIDE 105 mmol/L (98-107); GLUCOSE 113 mg/dL (75-110); POTASSIUM 4.3 mmol/L (3.6-5.0); TOTAL PROTEIN 7.3 g/dL (6.3-8.2)
--- NOTE | 2020-05-16 04:43 | ER Document Report ---
ED General - General Chief Complaint: Back Pain Stated Complaint: LOWER BACK PAIN Time Seen by Provider: 05/15/20 23:27 Primary Care Provider: BANDAR ROCHA MD [Primary Care Provider] - Follow up as needed Mode of Arrival: Ambulatory Notes: Patient is a 59-year-old female presenting to the emergency department with multiple complaints today. Patient is complaining of back pain that she states she believes is from a recent coughing episode. She is also complaining of swelling to her neck but she states she believes it is related to a recent thyroid biopsy. She states 2 weeks ago she had a biopsy done for some thyroid nodules. She states since then the swelling in her neck has increased significantly. She is able to swallow but states she has compressive symptoms. She states she is post to see ENT this afternoon. She is also complaining of ear pain and a sore throat. She states these of been ongoing for nearly 2 weeks. She is very anxious. She reports just learning that she has thyroid cancer and states she is very scared about her impending surgery. Multiple [facility] members have from cancer including a sister from thyroid cancer. TRAVEL OUTSIDE OF THE [place] IN LAST 30 DAYS: No - Related Data Allergies/Adverse Reactions: NSAIDS (Non-Steroidal Anti-Inflamma Adverse Reaction (Verified 12/22/19 15:58) Past Medical History - General Information source: Patient - Social History Smoking Status: Unknown if Ever Smoked Family History: Reviewed & Not Pertinent Patient has homicidal ideation: No - Past Medical History Cardiac Medical History: Reports: Hx Hypertension Endocrine Medical History: Reports: Hx Diabetes Mellitus Type 2 Past Surgical History: Reports: Hx Abdominal Surgery, Hx Gastric Bypass Surgery, Hx Orthopedic Surgery Review of Systems - Review of Systems Constitutional: See HPI EENT: See HPI Cardiovascular: No symptoms reported Respiratory: No symptoms reported Gastrointestinal: No symptoms reported Genitourinary: No symptoms reported Female Genitourinary: No symptoms reported Musculoskeletal: No symptoms reported Skin: No symptoms reported Hematologic/Lymphatic: No symptoms reported Neurological/Psychological: No symptoms reported Physical Exam - Vital signs Vitals: Temp Pulse Resp BP Pulse Ox 98.5 F 74 17 143/74 H 98 05/15/20 23:19 05/15/20 23:19 05/15/20 23:19 05/15/20 23:19 05/15/20 23:19 - Notes Notes: PHYSICAL EXAMINATION: GENERAL: Well-appearing, well-nourished and in no acute distress. HEAD: Atraumatic, normocephalic. EYES: Pupils equal round and reactive to light, extraocular movements intact, conjunctiva are normal. ENT: Nares patent, oropharynx clear without exudates. Moist mucous membranes. Palpable nodule to right anterior neck, generalized swelling noted throughout anterior neck. NECK: Normal range of motion, supple without lymphadenopathy LUNGS: Breath sounds clear to auscultation bilaterally and equal. No wheezes rales or rhonchi. HEART: Regular rate and rhythm without murmurs ABDOMEN: Soft, nontender, nondistended abdomen. No guarding, no rebound. No masses appreciated. Female : deferred Musculoskeletal: Normal range of motion, no pitting or edema. No cyanosis. NEUROLOGICAL: Cranial nerves grossly intact. Normal speech, normal gait. Normal sensory, motor exams PSYCH: Anxious. SKIN: Warm, Dry, normal turgor, no rashes or lesions noted. Course - Re-evaluation Re-evalutation: Patient appears well, nontoxic. She is very anxious, tearful, states she is very scared about her appointment today. She reports that she started having sw elling to her neck after having the biopsy to her thyroid 2 weeks ago. She states she has had pink sputum a few times and she is worried that they "punctured something". Patient speaking in full and complete sentences, swallowing without difficulty. Due to the swelling noted on the patient's neck and the patient's report that this is acute we will proceed with a CT soft tissue neck. - Vital Signs Vital signs: Temp Pulse Resp BP Pulse Ox 98.1 F 63 14 141/69 H 99 05/16/20 06:40 05/16/20 06:40 05/16/20 06:40 05/16/20 06:40 05/16/20 06:40 - Laboratory Result Diagrams: 05/16/20 01:34 05/16/20 01:34 Laboratory results interpreted by me: 05/16/20 05/16/20 05/16/20 01:34 01:34 01:34 WBC 12.2 H Hgb 11.6 L Hct 35.4 L MCV 79 L MCH 25.7 L RDW 17.1 H Absolute Neuts (auto) 9.1 H Creatinine 0.48 L Glucose 113 H Alkaline Phosphatase 136 H Urine Urobilinogen 2.0 H Discharge - Discharge Clinical Impression: Neck swelling, Anxiety about health Condition: Stable Disposition: HOME, SELF-CARE Additional Instructions: The CT scan of your neck showed some swelling but no life-threatening concerns. Please keep appointment you have this afternoon with the ENT clinic. Please keep any and all appointments to help with the surgical clinic. Take the predn isone as discussed. Return if worsening. Prescriptions: Prednisone [Deltasone 20 mg Tablet] 3 tab PO DAILY 5 Days #15 tablet Referrals: BANDAR ROCHA MD [Primary Care Provider] - Follow up as needed
[2020-05-16] MEDS ORDERED: HYDROCODONE/ACETAMINOPHEN 5-325 MG TABLET PO ONE (05:15)
--- NOTE | 2020-05-16 06:05 | RADIOLOGY REPORT (SQ) ---
EXAM DESCRIPTION: CT NECK WITH IV CONTRAST COMPLETED DATE/TME: 05/16/2020 04:31 CLINICAL HISTORY: 59 years, Female, neck swelling COMPARISON: None. TECHNIQUE: 290 Images stored on PACS. All CT scanners at this facility use dose modulation, iterative reconstruction, and/or weight based dosing when appropriate to reduce radiation dose to as low as reasonably achievable (ALARA). [facility]: Dose Right [facility]: CareDose [facility]: Dose Right [facility]: Teradose 4D [facility]: [employer] LIMITATIONS: None. FINDINGS: Limited evaluation of brain parenchyma is unremarkable. The globes are intact. Minor mucosal thickening of the left maxillary sinus. Paranasal sinuses and mastoid air cells are otherwise well aerated. Limited evaluation of the lung apices is unremarkable. Diffuse nodular appearance to the thyroid gland with severe nodular enlargement of the right lobe consistent with goitrous change. Nonspecific calcifications of the left lobe. Correlate with thyroid function. The submandibular and parotid glands are unremarkable. The airway is widely patent. The epiglottis is normal. The prevertebral soft tissues are normal. No cervical chain adenopathy. IMPRESSION: Diffuse nodular enlargement of the thyroid likely reflecting goitrous change. Follow-up with dedicated ultrasound on a nonemergent basis recommended. Minor mucosal thickening left maxillary sinus TECHNICAL DOCUMENTATION: Quality ID # [id number]: Final reports with documentation of one or more dose reduction techniques (e.g., Automated exposure control, adjustment of the mA and/or kV according to patient size, use of iterative reconstruction technique) copyright 2011 [employer]- All Rights Reserved
[2020-05-16 06:41] VITALS: BP 141/69
== END 2020-05-16 07:08 | disposition home or self-care (01) ==
LOC: ER 22:38
DX: R22.1 Localized swelling, mass and lump, neck (principal); E04.1 Nontoxic single thyroid nodule; F41.9 Anxiety disorder, unspecified; M54.9 Dorsalgia, unspecified; Z98.890 Other specified postprocedural states; H92.09 Otalgia, unspecified ear; I10 Essential (primary) hypertension; E11.9 Type 2 diabetes mellitus without complications; J02.9 Acute pharyngitis, unspecified; Z98.84 Bariatric surgery status
CPT/HCPCS: 36415; 70491; 71046; 80053; 81001; 85025; 99285

== ENCOUNTER 2020-06-29 05:40 | Observation (INO) | payer MEDICAID ==
[2020-06-24 11:24] LABS: HEMATOCRIT 34.4 % (36.0-47.0); HEMOGLOBIN 10.9 g/dL (12.0-15.5); MEAN CORPUSCULAR HEMOGLOBIN 25.1 pg (27.0-33.4); MEAN CORPUSCULAR HGB CONC 31.8 g/dL (32.0-36.0); MEAN CORPUSCULAR VOLUME 79 fl (80-97); PLATELET COUNT 357 10^3/uL (150-450); RED BLOOD COUNT 4.36 10^6/uL (3.72-5.28); RED CELL DISTRIBUTION WIDTH 16.9 % (11.5-14.0); WHITE BLOOD COUNT 8.9 10^3/uL (4.0-10.5)
[2020-06-24 11:47] LABS: ANION GAP 10 (5-19); BLOOD UREA NITROGEN 15 mg/dL (7-20); CALCIUM 8.8 mg/dL (8.4-10.2); CARBON DIOXIDE 26 mmol/L (22-30); CHLORIDE 105 mmol/L (98-107); GLUCOSE 71 mg/dL (75-110); POTASSIUM 4.4 mmol/L (3.6-5.0)
--- NOTE | 2020-06-25 09:20 | EKG REPORT ---
SEVERITY:- ABNORMAL ECG - SINUS RHYTHM PROBABLE LEFT VENTRICULAR HYPERTROPHY ANTERIOR Q WAVES, POSSIBLY DUE TO LVH BORDERLINE PROLONGED QT INTERVAL : Confirmed by: Sahra Carrizales 25-Jun-2020 09:19:56
[~2020-06-29 05:40] MED LIST: CEFAZOLIN 1 GM/D5W RTU 1 GM/50 ML RTUPB IV ONE; CEFAZOLIN 1 GM/D5W RTU 1 GM/50 ML RTUPB IV PRN; LACTATED RINGERS 1000 ML IV PRN; LIDOCAINE 0.5% INJ-PF (5 MG/ML) 50 ML SDV SUBCUT PRN
[2020-06-29] MEDS ORDERED: MICROFIBRILLAR COLLAGEN 1 GM PACK ONE ×3 (07:04→11:27)
[2020-06-29] MEDS ORDERED: LIDOCAINE 2% INJ-PF (20 MG/ML) 10 ML AMPUL ONE (07:09)
[2020-06-29] MEDS ORDERED: MIDAZOLAM 2 MG/2 ML INJ ONE (07:09)
[2020-06-29] MEDS ORDERED: HYDROMORPHONE HCL INJ/PF 2 MG/ML AMPULE ONE (07:09)
[2020-06-29] MEDS ORDERED: FENTANYL CITRATE INJ/PF 100 MCG/2 ML AMPUL ONE ×2 (07:09→12:23)
[2020-06-29] MEDS ORDERED: ONDANSETRON HCL INJ/PF 4 MG/2 ML SDV ONE (07:10)
[2020-06-29] MEDS ORDERED: PROPOFOL INJ 200 MG/20 ML VIAL IV ONE (07:10)
[2020-06-29] MEDS ORDERED: DEXAMETHASONE SOD PHOSPHATE INJ 4 MG/1 ML VIAL ONE (07:10)
[2020-06-29] MEDS ORDERED: OXYCODONE-ACETAMINOPHEN 5-325 MG TABLET PO PRN ×2 (08:23)
[2020-06-29] MEDS ORDERED: PROMETHAZINE HCL INJ 25 MG/1 ML VIAL IV PRN ×2 (08:23)
[2020-06-29] MEDS ORDERED: FENTANYL CITRATE INJ/PF 100 MCG/2 ML AMPUL IV PRN ×2 (08:23)
[2020-06-29] MEDS ORDERED: DIPHENHYDRAMINE HCL 50 MG/ML VIAL IV PRN (08:23)
[2020-06-29] MEDS ORDERED: MORPHINE SULFATE 10 MG/ML INJ IV PRN (08:23)
[2020-06-29] MEDS ORDERED: MEPERIDINE HCL/PF INJ 25 MG/1 ML DISP.SYRIN IV PRN (08:23)
[2020-06-29] MEDS ORDERED: CEFAZOLIN INJ 1 GM VIAL ONE (11:06)
[2020-06-29] MEDS ORDERED: THROMBIN (BOVINE) TOPICAL 20000 UNIT VIAL ONE (11:27)
[2020-06-29] MEDS ORDERED: THROMBIN (BOVINE) 5000 UNIT EPITAXIS KIT ONE (11:27)
[2020-06-29] MEDS ORDERED: THROMBIN (BOVINE) TOPICAL 5000 UNIT VIAL ONE (11:28)
[2020-06-29] MEDS ORDERED: ONDANSETRON HCL INJ/PF 4 MG/2 ML SDV IV PRN (12:13)
--- NOTE | 2020-06-29 12:13 | Operative Report ---
Operative Report DATE OF SURGERY: 06/29/20 PREOPERATIVE DIAGNOSIS: 1. Right lower lobe mass consistent with follicular ad enoma versus neoplasm. 2. Calcified left thyroid mass. 3. Tracheal deviation to the left POSTOPERATIVE DIAGNOSIS: Same with. 1. 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 2. Benign calcified left lobe nodule. 3. Postoperative bleeding OPERATION: 1. Thyroidectomy with isthmusectomy. 2. Intraoperative ultrason ography with documentation. 3. Reexploration of operative wound, with drain placement SURGEON: BANDAR CALVO TUBING ASSEMBLER: DUANE MEDRANO ANESTHESIA: GA TISSUE REMOVED OR ALTERED: Right thyroid lobe isthmus; fragment of right thyroid lobe; left thyroid lobe COMPLICATIONS: None ESTIMATED BLOOD LOSS: 200 cc INTRAOPERATIVE FINDINGS: See below PROCEDURE: The patient was seen in the preop holding area where the neck was marked for standard transcervical incision approximately 1 fingerbreadth below the cord cartilage. She was taken to the main operating room where general anesthesia w as induced. Arms were tucked, rolled sheet placed between the scapula, neck extended. The neck was then prepped and draped in sterile fashion. Surgical plan and surgical time were conducted. The patient was noted to have a 5 cm mass involving her right thyroid lobe with fine-needle aspiration planning of a follicular lesion, suspicious for neoplasm, Dwale classification 4. On the left side the patient had a 1.2 cm calcified rimmed nodule felt to be benign. The plan was to perform a right thyroid lobectomy first, then completion left lobectomy at the same setting if the surgeon was satisfied with the operative findings on the right, and there was sufficient indication to proceed with completion left lobectomy. The neck was opened through a standard transcervical incision previously marked in the holding area approximately 1 fingerbreadth below the cricoid cartilage. The length the incision was 7 cm, performed with a #10 blade. Superior and inferior skin and platysma flaps were raised uneventfully. The sternohyoid and sternothyroid muscles were divided midline. We approached the right thyroid lobe first. The sternothyroid muscle was elevated off of the anterior and lateral surface of the right thyroid lobe. There were several veins, superficial, between the right thyroid lobe and posterior surface of the strap muscles which were clipped and divided. The 5 and half centimeter mass was well-circumscribed, and from surrounding tissue easily. However the mass itself was quite friable and bled easily. Superior and inferior of the mass mobilized from surrounding tissue without difficulty. The right inferior parathyroid gland was felt to been seen and preserved. Of note the right recurrent laryngeal nerve was not definitively visualized in the dissection making some effort to visualize it the tracheal groove inferiorly, or further cephalad towards the ligament of Ogodson merrily due to easy bleeding. A suitable site for division of the isthmus was chosen, and the isthmus divided between clips and cautery. The right lobe came off of the trachea fairly uneventfully. The mass majority of the right thyroid lobe was from a residual fragment of thyroid parenchyma tracking towards inferior thyroid artery and its arborization. Therefore the mass was now amputated, all clips removed, and the specimen sent to pathology. Dr. Gutierrez reviewed it, performed a frozen section and felt that it represented a follicular variant of papillary carcinoma. For that reason we felt the completion thyroidectomy was indicated. I returned to the right neck, and removed an additional nubbin of parenchyma, approximately 1 and half centimeters, referred to in the previous paragraph. Appeared to be a benign thyroid tissue. It was this a specimen being sent to pathology for frozen section and Dr. Gutierrez reviewed it and felt it represented nonmalignant thyroid tissue. Again, the recurrent laryngeal nerve was not definitively viewed. A very small remnant of thyroid tissue had been left in association with the right upper parathyroid gland, a fat pad, and branches of the inferior thyroid artery. Hemostasis was felt to be satisfactory. A small gauze was placed in the recess of the wound. Intraoperative sonography was performed viewing the left thyroid lobe and confirming the calcified nodule in mid position approximately 1.2 cm in di ameter. The left sternohyoid and sternothyroid muscles were elevated off of the left lobe anteriorly. The left lobe was consistent with an anatomically conventional thyroid lobe with superior and inferior poles. The inferior pole attachments were elevated and between clips. The posterior surface of the left lobe came off of the trachea uneventfully. Superior pole vessels were taken down at their arborization point over the parenchyma between clips. The left superior parathyroid gland was felt to been visualized and preserved with the branching of the inferior thyroid artery. The left recurrent laryngeal nerve was not identified nor was it dissected out again to minimize bleeding encountered throughout the majority of this case. Of note tissue was edematous throughout as well. The left thyroid lobe fragmented during resection. Eventually it was mobilized off of the ligament of Goodson, had its clips removed and it was sent to Dr. Gutierrze who confirmed it to contain the known calcified nodule. She felt the rest of the lobe represented benign tissue. Degree of completion left thyroid lobectomy was felt to be very high with very little if any thyroid tissue left. In summary neither recurrent laryngeal nerve was seen definitively visualized. Both upper parathyroid glands were felt to be visualized as was the left lower parathyroid gland. The right lower parathyroid gland was not definitively seen. Sponge and needle counts are correct. Hemostasis was felt to be satisfactory. Avitene was placed in the recess of the wound, and the strap muscles approximated 2-0 Vicryl skin with 2-0 Vicryl and 3-0 Vicryl then Dermabond glue. As the patient was awakened from anesthesia, the staff physician noted the neck was swollen. The surgeon was called back into the room, and the neck was felt to be stented due to hematoma. Therefore we decided to immediately reexplore the neck. The patient was still on the operating table, and had not been extubated. Her neck was reprepped and draped in a sterile fashion. An additional dose of antibiotic was provided, and we immediately reopen the neck with a #10 blade. There was venous blood throughout the neck layers, including the subplatysmal, as well as the right and left upper paratracheal cavities. All clot was removed and the neck washed out several times methodically. We checked the skin, subcutaneous tissue, right and left neck recesses, vascular pedicles, etc. and no definitive mechanical bleeding source could be identified. Few small oozing spots on the fat surrounding the parathyroid glands was managed with general pressure and small clips. We placed a large Jaden drain through the 10 above the sternal notch, trimmed to the appropriate length, and sewed it to the skin with 2-0 Ethilon suture. Patient remained hemodynamically stable throughout the case, with no notes of hypertension. The exact reason for the bleeding was uncertain, however patient said tissue appeared to be oozy throughout the entire case as described above, and may have likely been from multiple sources. We carefully checked for any mechanical source of bleeding due to drain placement and there was none. We now activated 5000 units of thrombin and aspirated into the recesses of the neck wound, and did additional Avitene. We observe the patient for approximately 10 minutes to ensure no mechanical bleeding and we felt there was none. The drain was hooked to bulb suction, and wound closed again in layers including strap muscles loosely with 2-0 Vicryl suture, then the platysma with a 3-0 Vicryl and skin with 3-0 Vicryl, and skin glue. Patient continued to do well, was extubated and taken to the recovery room in stable condition. Voice assessment pending at time of dictation. JAMILA Pan assisted with first assisting at the field, tissue retraction, evacuation of clot. Extremely difficult modifier recommended for this case due to prolonged nature of the case, over 4 hours, technical difficulty mobilizing the right thyroid lobe, edema, and high predilection for intraoperative bleeding due to fragility of tissue.
[2020-06-29] MEDS ORDERED: NORMAL SALINE 1000 ML 1,000 ML IV PRN (12:14)
[2020-06-29] MEDS: FENTANYL CITRATE INJ/PF 100 MCG/2 ML AMPUL IV PRN ×2 (12:25→12:40)
[2020-06-29] MEDS ORDERED: ACETAMINOPHEN 1,000 MG/100 ML RTUPB IV ONE ×4 (13:01→23:59)
[2020-06-29] MEDS ORDERED: PHENYLEPHRINE HCL INJ/PF 10 MG/1 ML SDV ONE (15:02)
[2020-06-29] MEDS ORDERED: NEOSTIGMINE METHYLSULFATE 10 MG/10 ML VIAL ONE (15:02)
[2020-06-29] MEDS ORDERED: GLYCOPYRROLATE 1 MG/5 ML VIAL ONE (15:02)
[2020-06-29] MEDS: OXYCODONE-ACETAMINOPHEN 5-325 MG TABLET PO PRN ×2 (15:16→21:16)
[2020-06-29] MEDS: ACETAMINOPHEN 1,000 MG/100 ML RTUPB IV SCH (17:15)
[2020-06-29] MEDS: DOCUSATE SODIUM 100 MG CAPSULE PO SCH (17:22)
[2020-06-29] MEDS ORDERED: ACETAMINOPHEN INJ/PF 1000 MG/100 ML SDV IV SCH (18:00)
[2020-06-29] MEDS: CEFAZOLIN 1 GM/D5W RTU 1 GM/50 ML RTUPB IV SCH (18:00)
[2020-06-30] MEDS: CEFAZOLIN 1 GM/D5W RTU 1 GM/50 ML RTUPB IV SCH ×2 (02:18→09:28)
[2020-06-30] MEDS: OXYCODONE-ACETAMINOPHEN 5-325 MG TABLET PO PRN ×2 (03:30→10:00)
[2020-06-30] MEDS ORDERED: DEXTROSE 40% GEL 15 GM TUBE PO PRN ×2 (07:50)
[2020-06-30] MEDS ORDERED: DEXTROSE 50%-WATER 25 GM/50 ML DISP.SYRIN IV PRN ×2 (07:50)
[2020-06-30] MEDS ORDERED: GLUCAGON,HUMAN RECOMB 1 MG INJ SUBCUT PRN (07:50)
--- NOTE | 2020-06-30 08:13 | PDOC PROGRESS REPORT ---
Subjective Date:: 06/30/20 Subjective:: Patient with complaints of substernal chest pain intermittently since around 6:00 this morning. She complains of some associated mild shortness of breath. She has experienced some throat swelling as well status post thyroidectomy yesterday. Also complains of some bilateral subcostal discomfort. She denies any prior history of known coronary artery disease nor myocardial infarction. Reason For Visit: E04.2 NONTOXIC MULTINODULAR GOITER Physical Exam Vital Signs: Temp Pulse Resp BP Pulse Ox 98.2 F 58 L 17 114/55 L 97 06/30/20 04:03 06/30/20 04:03 06/30/20 04:03 06/30/20 04:03 06/30/20 04:03 Intake & Output 06/29/20 06/30/20 07/01/20 06:59 06:59 06:59 Intake Total 0 3040 Output Total 350 Balance 0 2690 Weight 86.18 kg 98.8 kg General appearance: PRESENT: cooperative, other - She appears uncomfortable but does not appear to be in distress. Neck exam: PRESENT: other - There is mild swelling at the thyroidectomy site that is diffuse, I do not think it is severe enough to cause airway compromise. It is what I would expect normally postoperatively. Her drain output is blood-tinged. Respiratory exam: PRESENT: clear to auscultation wendy Cardiovascular exam: PRESENT: RRR GI/Abdominal exam: PRESENT: other - Soft, nondistended, nontender to palpation. Extremities exam: PRESENT: other - Calves are soft with no visible edema. Skin exam: PRESENT: warm Results Laboratory Results: 06/24/20 10:50 06/24/20 10:50 06/29/20 18:34 Calcium 8.3 L Assessment & Plan - Diagnosis (1) Chest pain Is this a current diagnosis for this admission?: Yes Plan: Substernal chest pain in a patient status post thyroidectomy. I do not think she has airway compromise. Will check EKG stat as well as chest x-ray stat. I have spoken to and asked hospitalist to evaluate her as well. Will check labs and troponin. Defer to hospitalist for management of her chest pain. - Time Anticipated Discharge Disposition: Home, Self Care Anticipated Discharge Timeframe: within 72 hours
--- NOTE | 2020-06-30 08:33 | EKG REPORT ---
SEVERITY:- ABNORMAL ECG - SINUS RHYTHM CONSIDER ANTEROSEPTAL INFARCT : Confirmed by: Sunni Hill MD 30-Jun-2020 08:32:52
[2020-06-30] MEDS: ACETAMINOPHEN 1,000 MG/100 ML RTUPB IV SCH ×2 (08:37)
[2020-06-30 08:44] LABS: ABSOLUTE LYMPHOCYTES (AUTO) 1.9 10^3/uL (0.5-4.7); ABSOLUTE MONOCYTES (AUTO) 0.8 10^3/uL (0.1-1.4); ABSOLUTE NEUT (AUTO) 8.9 10^3/uL (1.7-8.2); BASOPHILS % (AUTO) 0.4 % (0-2); EOSINOPHILS % (AUTO) 0.4 % (0-6); HEMOGLOBIN 9.3 g/dL (12.0-15.5); LYMPHOCYTES % (AUTO) 16.4 % (13-45); MEAN CORPUSCULAR HEMOGLOBIN 25.5 pg (27.0-33.4); MEAN CORPUSCULAR VOLUME 80 fl (80-97); MONOCYTES % (AUTO) 6.9 % (3-13); PLATELET COUNT 287 10^3/uL (150-450); RED BLOOD COUNT 3.64 10^6/uL (3.72-5.28); SEGMENTED NEUTROPHILS % (AUTO) 75.9 % (42-78); TOTAL CELLS COUNTED % (AUTO) 100 %; WHITE BLOOD COUNT 11.7 10^3/uL (4.0-10.5)
[2020-06-30] MEDS ORDERED: MAG HYDROX/AL HYDROX/SIMETH SUSP 30 ML UDCUP PO ONE (08:52)
[2020-06-30 08:56] VITALS: BP 116/51
--- NOTE | 2020-06-30 09:06 | RADIOLOGY REPORT (SQ) ---
EXAM DESCRIPTION: CHEST SINGLE VIEW IMAGES COMPLETED DATE/TIME: 06/30/2020 8:39 am REASON FOR STUDY: chest pain COMPARISON: None. EXAM PARAMETERS: NUMBER OF VIEWS: One view. TECHNIQUE: Single frontal radiographic view of the chest acquired. RADIATION DOSE: NA LIMITATIONS: None. FINDINGS: LUNGS AND PLEURA: No opacities, masses or pneumothorax. No pleural effusion. MEDIASTINUM AND HILAR STRUCTURES: No masses. Contour normal. HEART AND VASCULAR STRUCTURES: Heart normal in size. Normal vasculature. BONES: No acute findings. HARDWARE: None in the chest. OTHER: Surgical drain tip overlying the thyroid bed. Multiple clips overlying the thyroid. IMPRESSION: Recent thyroidectomy. No acute findings in the chest. TECHNICAL DOCUMENTATION: JOB ID: [id number] 2010 [employer]- All Rights Reserved Reading location - IP/workstation name: [email or web address]
[2020-06-30] MEDS: DOCUSATE SODIUM 100 MG CAPSULE PO SCH (09:38)
[2020-06-30 10:21] LABS: ALBUMIN 3.8 g/dL (3.5-5.0); ALKALINE PHOSPHATASE 125 U/L (38-126); ANION GAP 8 (5-19); ASPARTATE AMINO TRANSFERASE 20 U/L (14-36); BILIRUBIN,DIRECT 0.1 mg/dL (0.0-0.4); BILIRUBIN,TOTAL 0.4 mg/dL (0.2-1.3); BLOOD UREA NITROGEN 9 mg/dL (7-20); CALCIUM 8.4 mg/dL (8.4-10.2); CARBON DIOXIDE 28 mmol/L (22-30); CHLORIDE 104 mmol/L (98-107); CREATINE KINASE 92 U/L (30-135); GLUCOSE 100 mg/dL (75-110); TOTAL PROTEIN 6.6 g/dL (6.3-8.2)
[2020-06-30 10:30] LABS: CREATINE KINASE MB 1.03 ng/mL (<4.55)
[2020-06-30 10:36] LABS: TROPONIN I < 0.012 ng/mL
--- NOTE | 2020-06-30 11:21 | PDOC DISCHARGE SUMMARY ---
General - Admit/Disc Date/PCP Admission Date/Primary Care Provider: 06/29/20 05:40 ADALBERTO WALKER PA-C Discharge Date: 06/30/20 - Discharge Diagnosis Final Diagnosis: Follicular variant of papillary carcinoma - Assessment Summary: 59-year-old female history of a Neeses classification 4 nodule 5 cm right thyroid lobe who was brought through ambulatory surgery for right possible left thyroid lobectomy. Patient's Covid test was negative. The patient was taken to the operating room where she underwent total thyroidectomy with drain placement. She had a very vascular gland with a significant amount of intraoperative oozing. Her neck was closed after placement of Avitene, however she developed a neck hematoma prior to extubation, and required reexploration with the neck washout. She was found to have no mechanical bleeding source. Avitene, and thrombin placed in the recesses of the neck, and drain large Jaden, placed intraoperatively. Patient tolerated the procedure well, and postoperatively had no numbness or tingling in her extremities. She voided tolerated clear liquid diet. Her drain put out a mid amount of serosanguineous fluid. Her calcium levels postoperatively dropped from 8.8, day 0.3-day 0.2. She has some substernal chest pain on the morning following surgery, and EKG and chest x-ray demonstrated no acute changes. Her troponin levels were normal. Her hemoglobin dropped from preoperative level of 10.9 to a 9.3. Patient's substernal chest pain was felt to be related to postoperative chest, and moderate to high anxiety level. She was hemodynamically stable and maintaining good saturations. Demonstrated Excellent vocal control, was educated on moderating her physical activity and avoiding coughing. She was felt to receive maximum benefit from hospitalization was discharged home. Arrangement made for her to be discharged home, to follow-up with Dr. Alvarenga in 24 hours at [facility] at 8:45 AM. She will take Synthroid, 137 mcg/day based on her weight and body mass index. She will also be provided calcium 2 g p.o. twice daily, and prescriptions have been provided for both. Patient is under contract with pain management for use of narcotics for her neck right shoulder pain. She is given no prescriptions for narcotic medications. - Additional Information Resuscitation Status: Full Code Referrals: ADALBERTO WALKER PA-C [Primary Care Provider] - BANDAR ROCHA MD [ACTIVE STAFF] - 07/01/20 8:45 am (CALL THE OFFICE OF ANY QUESTIONS OR CONCERNS) Home Medications: Escitalopram Oxalate [Lexapro 10 mg Tablet] 20 mg PO DAILY 06/29/20 Fluticasone Propionate [Flonase Nasal Greenfield 50 Mcg/Greenfield 16 gm] 2 sprays NASL Q12 06/29/20 Hydrocodone/Acetaminophen [Thompson 7.5-325 mg Tablet] 1 tab PO TIDP PRN 06/29/20 History of Present Illiness History of Present Illness: DARREL REYES is a 59 year old female Physical Exam Vital Signs: Temp Pulse Resp BP Pulse Ox 98.2 F 61 18 116/51 L 99 06/30/20 08:31 06/30/20 08:31 06/30/20 08:31 06/30/20 08:31 06/30/20 08:31 Intake & Output 06/29/20 06/30/20 07/01/20 06:59 06:59 06:59 Intake Total 0 3090 Output Total 350 Balance 0 2740 Weight 86.18 kg 98.8 kg Results Laboratory Results: WBC 11.7 10^3/uL (4.0-10.5) H 06/30/20 07:30 RBC 3.64 10^6/uL (3.72-5.28) L 06/30/20 07:30 Hgb 9.3 g/dL (12.0-15.5) L 06/30/20 07:30 Hct 29.0 % (36.0-47.0) L 06/30/20 07:30 MCV 80 fl (80-97) 06/30/20 07:30 MCH 25.5 pg (27.0-33.4) L 06/30/20 07:30 MCHC 32.0 g/dL (32.0-36.0) 06/30/20 07:30 RDW 17.0 % (11.5-14.0) H 06/30/20 07:30 Plt Count 287 10^3/uL (150-450) 06/30/20 07:30 Lymph % (Auto) 16.4 % (13-45) 06/30/20 07:30 [place] % (Auto) 6.9 % (3-13) 06/30/20 07:30 Eos % (Auto) 0.4 % (0-6) 06/30/20 07:30 Baso % (Auto) 0.4 % (0-2) 06/30/20 07:30 Absolute Neuts (auto) 8.9 10^3/uL (1.7-8.2) H 06/30/20 07:30 Absolute Lymphs (auto) 1.9 10^3/uL (0.5-4.7) 06/30/20 07:30 Absolute Monos (auto) 0.8 10^3/uL (0.1-1.4) 06/30/20 07:30 Absolute Eos (auto) 0.0 10^3/uL (0.0-0.6) 06/30/20 07:30 Absolute Basos (auto) 0.0 10^3/uL (0.0-0.2) 06/30/20 07:30 Seg Neutrophils % 75.9 % (42-78) 06/30/20 07:30 Sodium 140.0 mmol/L (137-145) 06/30/20 09:29 Potassium 4.0 mmol/L (3.6-5.0) 06/30/20 09:29 Chloride 104 mmol/L (98-107) 06/30/20 09:29 Carbon Dioxide 28 mmol/L (22-30) 06/30/20 09:29 Anion Gap 8 (5-19) 06/30/20 09:29 BUN 9 mg/dL (7-20) 06/30/20 09:29 Creatinine 0.49 mg/dL (0.52-1.25) L 06/30/20 09:29 Est GFR ( Amer) > 60 (>60) 06/30/20 09:29 Est GFR (MDRD) Non-Af > 60 (>60) 06/30/20 09:29 Glucose 100 mg/dL (75-110) 06/30/20 09:29 POC Glucose 141 mg/dL (70-110) H 06/29/20 15:38 Calcium 8.4 mg/dL (8.4-10.2) 06/30/20 09:29 Total Bilirubin 0.4 mg/dL (0.2-1.3) 06/30/20 09:29 Direct Bilirubin 0.1 mg/dL (0.0-0.4) 06/30/20 09:29 Neonat Total Bilirubin Not Reportable 06/30/20 09:29 Neonat Direct Bilirubin Not Reportable 06/30/20 09:29 Neonat Indirect Bili Not Reportable 06/30/20 09:29 AST 20 U/L (14-36) 06/30/20 09:29 ALT 14 U/L (<35) 06/30/20 09:29 Alkaline Phosphatase 125 U/L (38-126) 06/30/20 09:29 Creatine Kinase 92 U/L (30-135) 06/30/20 09:29 CK-MB (CK-2) 1.03 ng/mL (<4.55) 06/30/20 09:29 Troponin I < 0.012 ng/mL 06/30/20 09:29 Total Protein 6.6 g/dL (6.3-8.2) 06/30/20 09:29 Albumin 3.8 g/dL (3.5-5.0) 06/30/20 09:29 COVID-19 Source See comment 06/24/20 10:38 COVID-19 ([facility]) Not Detected (Not Detect) 06/24/20 10:38 06/30/20 09:29 CK-MB (CK-2) 1.03 Troponin I < 0.012 Impressions: Chest X-Ray 06/30/20 00:00 IMPRESSION: Recent thyroidectomy. No acute findings in the chest.
--- NOTE | 2020-06-30 12:46 | PDOC CONSULTATION ---
Consultation Consult Date: 06/30/20 Attending physician:: LATRICE VELASCO Provider Consulted: GERMAN ARCINIEGA Consult reason:: chest pain History of Present Illness Admission Date/PCP: 06/29/20 05:40 ADALBERTO WALKER PA-C Patient complains of: Chest pain History of Present Illness: DARREL REYES is a 59 year old female with history of thyroid mass s/p thyroidectomy and isthmusectomy, diabetes diet-controlled, previous history of bradycardia, PTSD, anxiety who presents to the hospital yesterday for elective thyroidectomy. Patient had this procedure done as well as a drain placed in patient's sternal region of her chest. Patient began to experience some chest pain today. Hospitalist service consulted for evaluation of chest pain. She stated it felt like a pressure-like sensation in her left chest as well as her epigastric region. Pain started this morning. Rated it about 3-4/5. Radiation to the neck area. Has some mild history of heartburn in the past. Chest pain is aggravated by deep inhalation but no vladimir alleviating factors. Denies fever or chills. Denies vladimir shortness of breath. Denies history of CAD. She states she has had a stress test 2 years ago which was normal. 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 Past Medical History Cardiac Medical History: Reports: Hypertension Denies: Coronary Artery Disease, Myocardial Infarction Pulmonary Medical History: Denies: Asthma, Bronchitis, Chronic Obstructive Pulmonary Disease (COPD), Pneumonia Neurological Medical History: Denies: Seizures Endocrine Medical History: Reports: Diabetes Mellitus Type 2 Musculoskeltal Medical History: Reports: Arthritis - SHOULDER, KNEES Psychiatric Medical History: Reports: Post Traumatic Stress Disorder Hematology: Denies: Anemia Past Surgical History Past Surgical History: Reports: Gastric Bypass Surgery, Orthopedic Surgery Social History Smoking Status: Never Smoker Frequency of Alcohol Use: None Hx Recreational Drug Use: No Family History Family History: DM, Hypertension Parental Family History Reviewed: Yes Children Family History Reviewed: Yes Sibling(s) Family History Reviewed.: Yes Medication/Allergy Home Medications: Escitalopram Oxalate [Lexapro 10 mg Tablet] 20 mg PO DAILY 06/29/20 Fluticasone Propionate [Flonase Nasal [place] 50 Mcg/[place] 16 gm] 2 sprays NASL Q12 06/29/20 Hydrocodone/Acetaminophen [[place] 7.5-325 mg Tablet] 1 tab PO TIDP PRN 06/29/20 Allergies/Adverse Reactions: NSAIDS (Non-Steroidal Anti-Inflamma Adverse Reaction (Intermediate, Verified 06/29/20 05:51) Review of Systems Constitutional: ABSENT: chills, fever(s) Eyes: ABSENT: visual disturbances Ears: ABSENT: hearing changes Nose, Mouth, and Throat: ABSENT: headache(s) Cardiovascular: PRESENT: chest pain. ABSENT: dyspnea on exertion, edema, orthropnea Respiratory: ABSENT: cough Gastrointestinal: PRESENT: abdominal pain, bloating. ABSENT: constipation, nausea, vomiting Genitourinary: ABSENT: difficulty urinating, dysuria Integumentary: ABSENT: diaphoresis Neurological: ABSENT: confusion Psychiatric: ABSENT: anxiety Endocrine: ABSENT: polyuria Hematologic/Lymphatic: ABSENT: easy bleeding Allergic/Immunologic: ABSENT: seasonal rhinorrhea Physical Exam Vital Signs: Temp Pulse Resp BP Pulse Ox 98.2 F 61 18 116/51 L 99 06/30/20 11:35 06/30/20 11:35 06/30/20 11:35 06/30/20 11:35 06/30/20 11:35 Intake & Output 06/29/20 06/30/20 07/01/20 06:59 06:59 06:59 Intake Total 0 3090 Output Total 350 Balance 0 2740 Weight 86.18 kg 98.8 kg General appearance: PRESENT: no acute distress, cooperative Head exam: PRESENT: normocephalic Eye exam: PRESENT: EOMI Neck exam: PRESENT: other - Surgical wound covered with clean dressing without saturation .. ABSENT: JVD Respiratory exam: PRESENT: chest wall tenderness - Patient's chest wall is tender all over but most especially asked to get closer to the region of her chest drain insertion around her sternum., clear to auscultation wendy, symmetrical, unlabored. ABSENT: accessory muscle use, tachypnea, wheezes Cardiovascular exam: PRESENT: RRR, +S1, +S2. ABSENT: tachycardia GI/Abdominal exam: PRESENT: normal bowel sounds, soft, tenderness - Mild LUQ tenderness. ABSENT: rebound, rigid Extremities exam: ABSENT: calf tenderness Neurological exam: PRESENT: alert, awake, oriented to person, oriented to place, oriented to time, oriented to situation Psychiatric exam: PRESENT: anxious. ABSENT: agitated Focused psych exam: ABSENT: pressured speech Skin exam: ABSENT: jaundice Results Laboratory Results: 06/30/20 07:30 06/30/20 09:29 06/29/20 06/30/20 06/30/20 18:34 07:30 07:30 WBC 11.7 H RBC 3.64 L Hgb 9.3 L Hct 29.0 L MCV 80 MCH 25.5 L MCHC 32.0 RDW 17.0 H Plt Count 287 Seg Neutrophils % 75.9 Sodium Potassium Chloride Carbon Dioxide Anion Gap BUN Creatinine Est GFR ( Amer) Glucose Calcium 8.3 L 8.2 L Total Bilirubin AST Alkaline Phosphatase Total Protein Albumin 06/30/20 09:29 WBC RBC Hgb Hct MCV MCH MCHC RDW Plt Count Seg Neutrophils % Sodium 140.0 Potassium 4.0 Chloride 104 Carbon Dioxide 28 Anion Gap 8 BUN 9 Creatinine 0.49 L Est GFR ( Amer) > 60 Glucose 100 Calcium 8.4 Total Bilirubin 0.4 AST 20 Alkaline Phosphatase 125 Total Protein 6.6 Albumin 3.8 06/30/20 06/30/20 09:29 09:29 Creatine Kinase 92 CK-MB (CK-2) 1.03 Troponin I < 0.012 Impressions: Chest X-Ray 06/30/20 00:00 IMPRESSION: Recent thyroidectomy. No acute findings in the chest. Assessment and Plan - Diagnosis (1) Chest pain Qualifiers: Chest pain type: unspecified Qualified Code(s): R07.9 - Chest pain, unspecified Is this a current diagnosis for this admission?: Yes Plan: EKG obtained which shows Q waves in septal leads but quite frankly there is no EKG changes as compared to her admission EKG Troponin obtained which is negative. Chest x-ray unremarkable for any acute parenchymal lung disease Her chest pain is somewhat pleuritic but also involve her right upper quadrant. I suspect it is mostly musculoskeletal and related to her surgical site and she is significantly tender on palpation. ACS is unlikely. Recommend treatment of musculoskeletal chest pain with Tylenol or as deemed necessary by surgery given her recent chest and neck surgery. Can give trial of Maalox to see if this helps with some indigestion. I will defer the rest of management to surgery. (2) Diabetes mellitus Qualifiers: Diabetes mellitus type: type 2 Is this a current diagnosis for this admission?: Yes Plan: Diet controlled. Blood sugars seem to be adequate. - Time Time Spent with patient: 35 or more minutes Anticipated Discharge Disposition: Home, Self Care Anticipated Discharge Timeframe: per surger
== END 2020-06-30 12:32 | disposition home or self-care (01) ==
LOC: INTOOBSV 05:40 → INOR 05:40 → 2N 13:53
PROVIDERS: ADMIT Surgery; ATTEND Surgery
DX: C73 Malignant neoplasm of thyroid gland (principal); R07.9 Chest pain, unspecified; E11.9 Type 2 diabetes mellitus without complications; J45.909 Unspecified asthma, uncomplicated; R45.0 Nervousness; I10 Essential (primary) hypertension; E66.9 Obesity, unspecified; G47.00 Insomnia, unspecified; Z79.899 Other long term (current) drug therapy; Z88.8 Allergy status to other drugs, medicaments and biological substances; Z86.010 Personal history of colon polyps; Z20.828 Contact with and (suspected) exposure to other viral communicable diseases
CPT/HCPCS: 60240; 93005 ×2; 36415 ×3; 82553; 82962; 82310 ×2; 82550; 85025; 85027; 87635; 80048; 80053; 84484; 88305 ×2; 71045; 94799; 93010 ×2; 00320; G0378 ×2; J2250; J0690 ×3; J1100; J3490 ×6; J3010; J2710; J1170; J2370; J2405; J7030; J2704; J0131 ×2; C9803; 320

== ENCOUNTER → 2020-07-04 | Outpatient (CLI) | payer MEDICAID | LOC: OD 08:57 | PROVIDERS: ATTEND Surgery | DX: Z09 Encounter for follow-up examination after completed treatment for conditions other than malignant neoplasm (principal); Z98.890 Other specified postprocedural states | CPT/HCPCS: 36415; 82310 ==